=== PATIENT | male | born 1945 | race Caucasian/White ===

== ENCOUNTER 2022-09-09 15:39 | Outpatient (CLI) | payer MEDICARE, SELFPAY ==
[2022-09-09 12:45] LABS: Abs Immature Grans 0.02 10^3/uL (0.0-0.06); Absolute Basophil Count 0.03 10^3/uL (0.0-0.2); Absolute Eosinophil Count 0.12 10^3/uL (0.0-0.7); Absolute Lymphocyte Count 1.34 10^3/uL (1.2-3.4); Absolute Monocyte Count 0.55 10^3/uL (0.1-0.8); Absolute Neutrophil Count 3.79 10^3/uL (1.2-6.7); Basophils % 0.5; Eosinophils % 2.1; HCT 42.7 % (40.0-50.0); HGB 14.2 g/dL (13.5-17.5); Immature Grans % 0.3; Lymphocytes % 22.9; MCH 27.4 pg (27.0-33.0); MCHC 33.3 % (32.0-36.0); MCV 82 fL (80-95); MPV 9.1 fL (8.0-11.0); Monocytes % 9.4; Neutrophils % 64.8; Platelet Count 237 10^3/uL (130-400); RBC 5.19 10^6/uL (4.36-5.78); RDW 13.5 % (11.8-14.1); RDW-SD 40.4 fL; WBC 5.85 10^3/uL (4.4-10.8)
[2022-09-09 13:01] LABS: ALT 32 U/L (16-63); AST 25 U/L (15-37); Albumin 3.7 g/dL (3.4-5.0); Alkaline Phosphatase 83 U/L (46-116); Anion Gap 5.8 mmol/L (3-11); BUN 18 mg/dL (7-18); Bilirubin, Total 0.6 mg/dL (0.2-1.0); CO2 29.2 mmol/L (21.0-32.0); CREATININE 0.9 mg/dL (0.70-1.30); Calcium 8.6 mg/dL (8.5-10.1); Chloride 105 mmol/L (98-107); Estimated GFR 88.51 (mL/min/1.73m2); Glucose 134 mg/dL (74-106); Potassium 4.1 mmol/L (3.5-5.1); Sodium 140 mmol/L (136-145); Total Protein 7.2 g/dL (6.4-8.2)
[2022-09-13 10:11] LABS: IgA 339 mg/dL (85-499); IgG 1085 mg/dL (610-1616); IgM 119 mg/dL (35-242); Kappa Free Light Chain 2.32 mg/dL (0.33-1.94); Lambda Free Light Chain 5.45 mg/dL (0.57-2.63)
[2022-09-13 13:26] LABS: Albumin 61.3 % (55.8-66.1); Albumin g/dL 4.2 g/dL (3.6-5.2); Comment (See Note); Monoclonal Spike 3.3 % (None Seen); Monoclonal Spike g/dL 0.2 g/dL (None Seen); Total Protein 6.9 g/dL (6.3-8.2)
[2022-09-13 15:12] LABS: Immunotyping, Serum (See Note)
== END 2022-09-09 15:40 | disposition home or self-care (01) ==
LOC: LBO 15:49
PROVIDERS: PCP Internal Medicine Hematology & Oncology; Visit Provider Internal Medicine Hematology & Oncology
DX: D47.2 Monoclonal gammopathy (principal)
CPT/HCPCS: 36415; 80053; 82784; 83883; 84165; 85025; 86320

== ENCOUNTER 2024-01-23 02:16 | Outpatient (CLI) | payer MEDICARE, SELFPAY ==
[2024-01-23 11:44] LABS: Abs Immature Grans 0.02 10^3/uL (0.0-0.06); Absolute Basophil Count 0.03 10^3/uL (0.0-0.2); Absolute Eosinophil Count 0.07 10^3/uL (0.0-0.7); Absolute Lymphocyte Count 1.24 10^3/uL (1.2-3.4); Absolute Monocyte Count 0.56 10^3/uL (0.1-0.8); Basophils % 0.5 %; Eosinophils % 1.2 %; HCT 43.1 % (40.0-50.0); HGB 14.2 g/dL (13.5-17.5); Immature Grans % 0.4 %; Lymphocytes % 22.1 %; MCH 27.5 pg (27.0-33.0); MCHC 32.9 % (32.0-36.0); MCV 84 fL (80-95); MPV 8.9 fL (8.0-11.0); Neutrophils % 65.8 %; Platelet Count 222 10^3/uL (130-400); RBC 5.16 10^6/uL (4.36-5.78); RDW 13.2 % (11.8-14.1); RDW-SD 40.2 fL; WBC 5.62 10^3/uL (4.4-10.8)
[2024-01-23 12:21] LABS: ALT 44 U/L (16-63); AST 42 U/L (15-37); Albumin 3.8 g/dL (3.4-5.0); Alkaline Phosphatase 86 U/L (46-116); Anion Gap 6.8 mmol/L (3-11); BUN 19 mg/dL (7-18); Bilirubin, Total 0.58 mg/dL (0.2-1.0); CO2 30.2 mmol/L (21.0-32.0); CREATININE 0.9 mg/dL (0.70-1.30); Chloride 106 mmol/L (98-107); Estimated GFR 87.96 (mL/min/1.73m2); Glucose 106 mg/dL (74-106); Potassium 4.3 mmol/L (3.5-5.1); Sodium 143 mmol/L (136-145); Total Protein 7.3 g/dL (6.4-8.2)
[2024-01-24 10:34] LABS: IgA 335 mg/dL (85-499); IgG 1050 mg/dL (610-1616); IgM 118 mg/dL (35-242); Kappa Free Light Chain 2.12 mg/dL (0.33-1.94); Lambda Free Light Chain 8.41 mg/dL (0.57-2.63)
[2024-01-24 13:12] LABS: Albumin 61.8 % (55.8-66.1); Albumin g/dL 4.3 g/dL (3.6-5.2); Comment (See Note); Monoclonal Spike 4.4 % (None Seen); Monoclonal Spike g/dL 0.3 g/dL (None Seen); Total Protein 6.9 g/dL (6.3-8.2)
== END 2024-01-23 02:17 | disposition home or self-care (01) ==
LOC: LBO 02:16
PROVIDERS: PCP Internal Medicine Hematology & Oncology; Visit Provider Internal Medicine Hematology & Oncology
DX: D47.2 Monoclonal gammopathy (principal)
CPT/HCPCS: 36415; 80053; 82784; 83883; 84165; 85025